=== PATIENT | male | born 1970 | race Two or more races ===

== ENCOUNTER 2018-08-25 15:34 | Emergency (ER) | payer MEDICAID, OTHER ==
[~2018-08-25] VITALS: Ht 182.9 cm; Wt 76.2 kg
[2018-08-25 18:53] VITALS: BP 128/78
[2018-08-25] MEDS ORDERED: CLINDAMYCIN 600 MG/4 ML VL IM ONE (19:00)
[2018-08-25] MEDS ORDERED: KETOROLAC TROMETH 60MG/2ML VIAL IM ONE (19:00)
== END 2018-08-25 19:40 | disposition home or self-care (01) ==
LOC: ER 15:34
DX: S02.5XXA Fracture of tooth (traumatic), initial encounter for closed fracture (principal); K04.7 Periapical abscess without sinus; K02.9 Dental caries, unspecified; X58.XXXA Exposure to other specified factors, initial encounter; Y93.89 Activity, other specified; Y99.8 Other external cause status; Y92.89 Other specified places as the place of occurrence of the external cause
CPT/HCPCS: 96372; 99283; J1885